=== PATIENT | female | born 1995 | race Caucasian/White ===

== ENCOUNTER 2024-11-12 13:37 | Emergency (ER) | payer SELFPAY ==
[~2024-11-12] VITALS: Ht 160 cm; Wt 71.7 kg
[2024-11-12 14:40] VITALS: PULSE 71; RESP 18; TEMP 97.9; O2SAT 100
[2024-11-12] MEDS: TETANUS/DIPHTHERIA TOX ADULT 0.5 ML SYR IM ONE (14:53)
== END 2024-11-12 15:04 | disposition home or self-care (01) ==
LOC: ER 14:37
DX: S61.012A Laceration without foreign body of left thumb without damage to nail, initial encounter (principal); W26.0XXA Contact with knife, initial encounter; Y92.89 Other specified places as the place of occurrence of the external cause
CPT/HCPCS: 90714; 99282